=== PATIENT | female | born 1955 | race African-American/Black ===

== ENCOUNTER 2016-12-06 10:09 | Emergency (ER) | payer MEDICARE, OTHER ==
[~2016-12-06] VITALS: Ht 157.5 cm; Wt 90.0 kg
[~2016-12-06 10:09] MED LIST: ADV25050 INH; ALPR2TAB PO; AMLO-147 PO; ATOR40TA68 PO; CARI350T29 PO; HYDR-902 PO; LINA5TAB PO; LISI20TA11 PO; MECL12.574 PO; METF500T4 PO; NOVO3I SC; OXYC30TA72 PO; SERT100T PO
[2016-12-06 10:19] VITALS: Ht 157.5 cm; Wt 90.0 kg
[2016-12-06] MEDS ORDERED: ACETAMINOPHEN 500 MG TAB PO STA (10:59)
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
[2016-12-06] MEDS ORDERED: ACET500C5 PO (12:40)
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
[2016-12-06 12:55] VITALS: BP 145/81; PULSE 72; RESP 18; TEMP 98.1
== END 2016-12-06 12:55 | disposition home or self-care (01) ==
LOC: FTE 10:09
DX: S33.9XXA Sprain of unspecified parts of lumbar spine and pelvis, initial encounter (principal); S13.9XXA Sprain of joints and ligaments of unspecified parts of neck, initial encounter; I10 Essential (primary) hypertension; F17.210 Nicotine dependence, cigarettes, uncomplicated; J45.909 Unspecified asthma, uncomplicated; V89.2XXA Person injured in unspecified motor-vehicle accident, traffic, initial encounter; Z79.4 Long term (current) use of insulin; Z79.84 Long term (current) use of oral hypoglycemic drugs; Z96.651 Presence of right artificial knee joint
CPT/HCPCS: 72125; 72131; 73562

== ENCOUNTER 2017-02-02 09:11 | Emergency (ER) | payer MEDICARE, OTHER ==
[~2017-02-02] VITALS: Wt 109.2 kg
[~2017-02-02 09:11] MED LIST changes: +ACET500C5 PO
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
--- NOTE | 2017-02-02 10:36 | RADRPT ---
PROCEDURE: CT Brain without contrast. CLINICAL INDICATION: Right-sided paresthesia TECHNIQUE: A CT of the brain was performed on a multidetector CT scanner utilizing axial imaging f rom the skull base through the vertex without IV contrast. Multiplanar reformatted images were made . Images were reviewed on a PACS workstation. The CTDIvol is 45 mGy and the DLP is 630 mGycm. DICOM images are available. One or more of the following dose reduction techniques were utilized: 1.) Automated exposure control 2.) Adjustment of the mA +/- kV according to patient's size 3.) Use of iterative reconstruction technique. COMPARISON: None FINDINGS: There is no intracranial hemorrhage, mass effect, or midline shift. No extra-axial fluid collection is seen. The ventricles and sulci are normal in size and configuration. The density of the brain is normal, and the ordonez white matter differentiation appears well-preserved. The visualized paranasal sinuses and osseous structures are grossly unremarkable. IMPRESSION: 1. No evidence of acute intracranial pathology. 2. The brain is normal in appearance. .Randal Ko MD, MD Date Time Electronically viewed and signed by .Randal Ko MD, MD on 02/02/2017 10:36 .A/
[2017-02-02 10:43] LABS: BASOPHILS % 0.8 % (0.0-2.0); EOSINOPHILS # 0.1 10^3/ul (0.0-0.5); EOSINOPHILS % 1.8 % (0.0-7.0); HEMATOCRIT 41.6 % (37.0-47.0); LYMPHOCYTES # 1.2 10^3/ul (0.8-2.9); LYMPHOCYTES % 30.4 % (15.0-51.0); MEAN CORPUSCULAR HEMOGLOBIN 31.9 pg (29.0-33.0); MEAN CORPUSCULAR HGB CONC 33.7 g/dl (32.0-37.0); MEAN CORPUSCULAR VOLUME 94.8 fl (82.0-101.0); MEAN PLATELET VOLUME 10.4 fl (7.4-10.4); MONOCYTE # 0.3 10^3/ul (0.3-0.9); MONOCYTES % 7.8 % (0.0-11.0); NEUTROPHIL # 2.3 10^3/ul (1.6-7.5); NEUTROPHILS % 58.9 % (39.0-77.0); PLATELET COUNT 233 10^3/UL (140-415); RED BLOOD COUNT 4.39 10^6/ul (4.20-5.40); RED CELL DISTRIBUTION WIDTH 11.9 % (11.5-14.5); WHITE BLOOD COUNT 3.9 10^3/ul (4.8-10.8)
[2017-02-02 11:00] LABS: ALANINE AMINOTRANSFERASE 38 IU/L (13-69); ALBUMIN/GLOBULIN RATIO 1.25; ALKALINE PHOSPHATASE 145 IU/L (42-121); ANION GAP 13 (8-16); ASPARTATE AMINO TRANSFERASE 28 IU/L (15-46); BILIRUBIN,INDIRECT 0.1 mg/dl (0-1.1); BILIRUBIN,TOTAL 0.1 mg/dl (0.2-1.3); BLOOD UREA NITROGEN 14 mg/dl (7-20); CALCIUM 9.2 mg/dl (8.4-10.2); CARBON DIOXIDE 32 mmol/L (21-31); CHLORIDE 96 mmol/L (97-110); CREATININE 0.58 mg/dl (0.44-1.00); GLUCOSE 308 mg/dl (70-220); SODIUM 138 mmol/L (135-144); TOTAL PROTEIN 7.2 g/dl (6.1-8.1)
[2017-02-02 11:02] LABS: INR 0.92; PROTIME 12.4 Sec (12.2-14.2)
[2017-02-02 11:03] LABS: PARTIAL THROMBOPLASTIN TIME 28.4 Sec (25.0-35.0); POTASSIUM 2.8 mmol/L (3.5-5.1)
[2017-02-02 11:13] LABS: TROPONIN-I < 0.012 ng/ml (0.00-0.12)
[2017-02-02] MEDS ORDERED: POTASSIUM CHLORIDE (SR) 20 MEQ TAB PO STA ×2 (11:17→15:46)
[2017-02-02 11:22] LABS: ADD UMIC YES; UR ASCORBIC ACID NEGATIVE (NEGATIVE); UR BILIRUBIN (Dip) NEGATIVE (NEGATIVE); UR BLOOD (Dip) 1+ mg/dL (NEGATIVE); UR CLARITY CLEAR (CLEAR); UR COLOR STRAW (YELLOW); UR GLUCOSE (Dip) 3+ mg/dL (NEGATIVE); UR KETONES (Dip) TRACE mg/dL (NEGATIVE); UR LEUKOCYTE ESTERASE (Dip) NEGATIVE Leu/ul (NEGATIVE); UR NITRITE (Dip) NEGATIVE (NEGATIVE); UR RBC 2 /HPF (0-5); UR SPECIFIC GRAVITY (Dip) 1.027 (1.003-1.030); UR SQUAMOUS EPITHELIAL CELL FEW /HPF (FEW); UR TOTAL PROTEIN (Dip) NEGATIVE (NEGATIVE); UR UROBILINOGEN (Dip) NEGATIVE (NEGATIVE)
[2017-02-02] MEDS ORDERED: 1/2 NS + KCL 20 MEQ 1,000 ML IV ONE (11:30)
[2017-02-02] MEDS ORDERED: MAGNESIUM SULFATE 1 GM/D5W 100 ML IVPB ONE (11:30)
[2017-02-02] MEDS ORDERED: POTA10TA37 PO (17:25)
[2017-02-02 17:45] VITALS: BP 150/93; PULSE 78; RESP 18
== END 2017-02-02 17:46 | disposition home or self-care (01) ==
LOC: FTE 09:11
DX: E87.6 Hypokalemia (principal); R20.2 Paresthesia of skin; I10 Essential (primary) hypertension; E11.9 Type 2 diabetes mellitus without complications; J45.909 Unspecified asthma, uncomplicated; R07.9 Chest pain, unspecified; Z87.891 Personal history of nicotine dependence; Z96.651 Presence of right artificial knee joint; Z79.4 Long term (current) use of insulin; Z79.84 Long term (current) use of oral hypoglycemic drugs
CPT/HCPCS: 36415; 70450; 80053; 81001; 84132; 84484; 85025; 85610; 85730; 93005; 96374; 99285; J3475; J3480